=== PATIENT | male | born 1990 | race Asian ===

== ENCOUNTER → 2016-07-08 | Outpatient (CLI) | payer OTHER ==
[~2016-07-08] VITALS: Ht 165.1 cm; Wt 56.6 kg
[~2016-07-08] MED LIST: ASCA500 PO; CIPR-255 PO; ONDA4TAB7 SL
[2016-07-08 12:46] VITALS: BP 100/67; PULSE 73; Ht 165.1 cm; Wt 56.6 kg
== END | disposition home or self-care (01) ==
LOC: C.NEUR 12:27
PROVIDERS: ATTEND Internal Medicine Pulmonary Disease
DX: G47.19 Other hypersomnia (principal)

== ENCOUNTER → 2017-03-10 | Outpatient (CLI) | payer OTHER ==
[~2017-03-10] VITALS: Ht 165.1 cm; Wt 57.7 kg
[2017-03-10 16:22] VITALS: BP 116/83; PULSE 73; Ht 165.1 cm; Wt 57.7 kg
== END | disposition home or self-care (01) ==
LOC: C.NEUR 15:36
PROVIDERS: ATTEND Internal Medicine Pulmonary Disease
DX: G47.10 Hypersomnia, unspecified (principal); R53.83 Other fatigue